=== PATIENT | female | born 1990 | race Caucasian/White ===

== ENCOUNTER 2017-07-20 01:46 | Emergency (ER) | payer SELFPAY ==
[2017-07-20 02:20] VITALS: BP 149/96; PULSE 100; RESP 18; TEMP 98.2; O2SAT 96
[2017-07-20 04:46] VITALS: BP 142/96; PULSE 76; RESP 18; O2SAT 98
--- NOTE | 2017-07-20 05:23 | PD ---
HPI Chief Complaint: Surgical Services Asst Problem/Complaint Time Seen by Provider: 04:54 Travel History International Travel<30 days: No Contact w/Intl Traveler<30days: No Traveled to known affect area: No History of Present Illness HPI 26-year-old female patient with history of PCO S, has missed her menses for the last 3 months and presents to the ER today because she states that she has noticed some whitish discharge as well. She denies any fevers, abdominal pain, or any other symptoms. She states that her menses are irregular and she just wants to get checked out. 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 Modifying Factors: None Associated Signs & Symptoms: Missed menses, discharge Risk Factors: PCO S PFSH Past Medical History Diminished Hearing: No Reproductive: Yes (PCOS) Tetanus Vaccination: Unknown Influenza Vaccination: No ?: Unknown Past Surgical History Surgical History: No Previous Surgery Social History Alcohol Use: No Tobacco Use: No Substance Use: No Allergies-Medications (Allergen,Severity, Reaction): Coded Allergies: No Known Allergies (Verified , 07/20/17) Reported Meds & Prescriptions Reported Meds & Active Scripts Active No Active Prescriptions or Reported Medications Review of Systems Except as stated in HPI: all other systems reviewed are Neg Physical Exam Narrative GENERAL: Well-developed young female patient currently in no acute distress. Awake and oriented 3. SKIN: Focused skin assessment warm/dry. HEAD: Atraumatic. Normocephalic. EYES: Pupils equal and round. No scleral icterus. No injection or drainage. ENT: No nasal bleeding or discharge. Mucous membranes pink and moist. NECK: Trachea midline. No JVD. CARDIOVASCULAR: Regular rate and rhythm. No murmur appreciated. RESPIRATORY: No accessory muscle use. Clear to auscultation. Breath sounds equal bilaterally. GASTROINTESTINAL: Abdomen soft, non-tender, nondistended. Hepatic and splenic margins not palpable. GENITOURINARY: Normal external genitalia without lesions or erythema. Vaginal vault without blood, or significant drainage. Cervical os was closed without drainage. No cervical motion tenderness. I do notice a small ulcerated area at the 12 o'clock position on the cervix. Uterus nontender and nonenlarged. Bilateral adnexa nontender without masses. MUSCULOSKELETAL: No obvious deformities. No clubbing. No cyanosis. No edema. NEUROLOGICAL: Awake and alert. No obvious cranial nerve deficits. Motor grossly within normal limits. Normal speech. PSYCHIATRIC: Appropriate mood and affect; insight and judgment normal. Data Data Last Documented VS Vital Signs Date Time Temp Pulse Resp B/P (MAP) Pulse Ox O2 Delivery O2 Flow Rate FiO2 07/20/17 04:46 76 18 142/96 (111) 98 Room Air 07/20/17 02:20 98.2 Orders Orders Gc And Chlamydia Pcr (07/20/17 04:54) Wet Prep Profile (07/20/17 04:54) Urinalysis - C+S If Indicated (07/20/17 04:54) Labs Laboratory Tests Test 07/20/17 05:00 Urine Color YELLOW Urine Turbidity HAZY Urine pH 6.0 Urine Specific [place] 1.026 Urine Protein TRACE mg/dL Urine Glucose (UA) NEG mg/dL Urine Ketones NEG mg/dL Urine Occult Blood NEG Urine Nitrite NEG Urine Bilirubin NEG Urine Urobilinogen LESS THAN 2.0 MG/DL Urine Leukocyte Esterase SMALL Urine RBC 1 /hpf Urine WBC 4 /hpf Urine Squamous Epithelial Cells 6 /hpf Urine Bacteria OCC /hpf Urine Mucus FEW /lpf Microscopic Urinalysis Comment CULT NOT INDICATED Clue Cells (Wet Prep) PRESENT Vaginal Trichomonas (Wet Prep) NONE SEEN Vaginal Yeast (Wet Prep) NONE SEEN MDM Medical Decision Making Medical Screen Exam Complete: Yes Emergency Medical Condition: Yes Medical Record Reviewed: Yes Interpretation(s) Laboratory Tests Test 07/20/17 05:00 Urine Turbidity HAZY (CLEAR) Urine Leukocyte Esterase SMALL (NEG) Urine Bacteria OCC /hpf (NONE) Urine Mucus FEW /lpf (OCC) Clue Cells (Wet Prep) PRESENT (NONE) Differential Diagnosis Vaginal discharge, missed menses: versus cervicitis versus vaginitis Narrative Course UA shows no signs of significant UTI. Urine test is negative. She does have some clue cells indicative of underlying vaginitis. At this point, my plan would be to treat her with Flagyl. I will have her follow-up with OB/ CARDIAC TECHNOLOGIST regarding this issue. Return for new issues as needed. The plan has been discussed with her and she states understanding. Diagnosis Primary Impression: Missed menses Additional Impression: Bacterial vaginosis Med/Other Pt SpecificInfo: Prescription(s) given Scripts Metronidazole (Flagyl) 500 Mg Tab 500 MG PO TID for Infection for 7 Days, TAB 0 Refills Prov: Maddie Snyder MD 07/20/17 Disposition: 01 DISCHARGE HOME Condition: Stable Maddie Snyder MD Jul 20, 2017 05:22
[2017-07-20 05:30] LABS: BACTERIA, URINE OCC /hpf; BLOOD, URINE NEG (NEG); COMMENT (UR) CULT NOT INDICATED; CULTURE IF INDICATED CULT NOT INDICATED; GLUCOSE,URINE NEG (NEG); KETONE, URINE NEG (NEG); MUCUS URINE FEW /lpf (OCC); NITRITE,URINE NEG (NEG); SQUAMOUS EPITHELIAL CELL URINE 6 /hpf (0-5); URINE COLOR YELLOW (YELLW/STRAW)
[2017-07-20] MEDS ORDERED: METR-1 PO (05:33)
[2017-07-20 07:30] LABS: CHLAMYDIA PCR NOT DETECTED (NOT DETECT); NEISSERIA PCR NOT DETECTED (NOT DETECT)
== END 2017-07-20 06:04 | disposition home or self-care (01) ==
LOC: NED 01:46 → NEPE 06:04
DX: N92.5 Other specified irregular menstruation (principal); N76.0 Acute vaginitis; E28.2 Polycystic ovarian syndrome
CPT/HCPCS: 81001; 87210; 87491; 87591; 99283

== ENCOUNTER 2017-12-04 17:28 | Emergency (ER) | payer MEDICAID ==
[~2017-12-04] VITALS: Ht 168.9 cm; Wt 77.0 kg
[~2017-12-04 17:28] MED LIST: METR-1 PO
[2017-12-04 17:35] VITALS: BP 167/80; PULSE 78; RESP 16; TEMP 97.8; O2SAT 100
--- NOTE | 2017-12-04 18:07 | PD ---
HPI Chief Complaint: Edema Time Seen by Provider: 17:42 Travel History International Travel<30 days: No Contact w/Intl Traveler<30days: No Traveled to known affect area: No History of Present Illness HPI 27-year-old female with history of PCOS, here for evaluation of bilateral flank pain, right greater than left, increased thirst, and lower extremity edema. Symptoms have been going on for 3 days. Flank pain is described as sharp, 8 out of 10, worse with movements. No trauma. No IVDU. No dysuria or hematuria. Patient also reports having noticed some lower extremity edema which is worse as the day progresses. She reports she has had this in the past when she has been , however she is unsure if she is . Her LMP was sometime in October 2017. She denies chest pain or dyspnea. No history of DVT or PE. No fevers or chills. PFSH Past Medical History Diminished Hearing: No Reproductive: Yes (PCOS) Tetanus Vaccination: Unknown Influenza Vaccination: No ?: Unknown LMP: IRREGULAR-PCOS Social History Alcohol Use: No Tobacco Use: Yes Substance Use: No Allergies-Medications (Allergen,Severity, Reaction): Coded Allergies: No Known Allergies (Verified Adverse Reaction, Unknown, 12/04/17) Reported Meds & Prescriptions Reported Meds & Active Scripts Active Flagyl (Metronidazole) 500 Mg Tab 500 Mg PO BID 7 Days Cipro (Ciprofloxacin HCl) 500 Mg Tab 500 Mg PO BID 7 Days Review of Systems Except as stated in HPI: all other systems reviewed are Neg Physical Exam Narrative GENERAL: Well-developed, well-nourished, comfortable, no apparent distress. SKIN: Focused skin assessment warm/dry. No rash. HEAD: Atraumatic. Normocephalic. EYES: Pupils equal and round. No scleral icterus. No injection or drainage. ENT: Mucous membranes pink and moist. NECK: Trachea midline. No JVD. CARDIOVASCULAR: Regular rate and rhythm. No murmur appreciated. RESPIRATORY: No accessory muscle use. Clear to auscultation. Breath sounds equal bilaterally. GASTROINTESTINAL: Abdomen soft, non-tender, nondistended. MUSCULOSKELETAL: No obvious deformities. No clubbing. No cyanosis. No edema. Moderate right CVA tenderness. Mild left CVA tenderness. No midline vertebral step-off or tenderness. NEUROLOGICAL: Awake and alert. No obvious cranial nerve deficits. Motor grossly within normal limits. Normal speech. PSYCHIATRIC: Appropriate mood and affect; insight and judgment normal. Data Data Last Documented VS Vital Signs Date Time Temp Pulse Resp B/P (MAP) Pulse Ox O2 Delivery O2 Flow Rate FiO2 12/04/17 18:15 99 Room Air 12/04/17 17:35 97.8 78 16 167/80 (109) Orders Orders Beta Hcg (Quant/Titer) (12/04/17 18:03) Complete Blood Count With Diff (12/04/17 18:03) Comprehensive Metabolic Panel (12/04/17 18:03) Prothrombin Time / Inr (Pt) (12/04/17 18:03) Act Partial Throm Time (Ptt) (12/04/17 18:03) Urinalysis - C+S If Indicated (12/04/17 18:03) Ct Abd/Pel W Iv Contrast(Rout) (12/04/17 18:03) Iv Access Insert/Monitor (12/04/17 18:03) Ecg Monitoring (12/04/17 18:03) Oximetry (12/04/17 18:03) Sodium Chloride 0.9% Flush (Ns Flush) (12/04/17 18:15) Ed Urine Pregnancytest Poc (12/04/17 18:03) Morphine Inj (Morphine Inj) (12/04/17 18:15) Iohexol 350 Inj (Omnipaque 350 Inj) (12/04/17 18:31) Mandatory Outpatient Referral (12/04/17 19:08) Ciprofloxacin (Cipro) (12/04/17 19:15) Metronidazole (Flagyl) (12/04/17 19:15) Labs Laboratory Tests Test 12/04/17 18:13 White Blood Count 8.6 TH/MM3 Red Blood Count 4.61 MIL/MM3 Hemoglobin 13.5 GM/DL Hematocrit 39.8 % Mean Corpuscular Volume 86.2 FL Mean Corpuscular Hemoglobin 29.2 PG Mean Corpuscular Hemoglobin Concent 33.9 % Red Cell Distribution Width 11.8 % Platelet Count 222 TH/MM3 Mean Platelet Volume 8.4 FL Neutrophils (%) (Auto) 44.1 % Lymphocytes (%) (Auto) 47.4 % Monocytes (%) (Auto) 6.1 % Eosinophils (%) (Auto) 2.1 % Basophils (%) (Auto) 0.3 % Neutrophils # (Auto) 3.8 TH/MM3 Lymphocytes # (Auto) 4.1 TH/MM3 Monocytes # (Auto) 0.5 TH/MM3 Eosinophils # (Auto) 0.2 TH/MM3 Basophils # (Auto) 0.0 TH/MM3 CBC Comment DIFF FINAL Differential Comment Prothrombin Time 10.0 SEC Prothromb Time International Ratio 1.0 RATIO Activated Partial Thromboplast Time 28.5 SEC Urine Color YELLOW Urine Turbidity CLEAR Urine pH 6.0 Urine Specific [place] 1.008 Urine Protein NEG mg/dL Urine Glucose (UA) NEG mg/dL Urine Ketones NEG mg/dL Urine Occult Blood NEG Urine Nitrite NEG Urine Bilirubin NEG Urine Leukocyte Esterase NEG Urine WBC 0-2 /hpf Urine Squamous Epithelial Cells 0-5 /hpf Microscopic Urinalysis Comment CULT NOT INDICATED Blood Urea Nitrogen 12 MG/DL Creatinine 0.70 MG/DL Random Glucose 92 MG/DL Total Protein 7.3 GM/DL Albumin 3.2 GM/DL Calcium Level 8.2 MG/DL Alkaline Phosphatase 81 U/L Aspartate Amino Transf (AST/SGOT) 16 U/L Alanine Aminotransferase (ALT/SGPT) 21 U/L Total Bilirubin 0.3 MG/DL Sodium Level 141 MEQ/L Potassium Level 3.8 MEQ/L Chloride Level 107 MEQ/L Carbon Dioxide Level 28.7 MEQ/L Anion Gap 5 MEQ/L Estimat Glomerular Filtration Rate 99 ML/MIN Human Chorionic Gonadotropin, Quant LESS THAN 1 MIU/ML MDM Medical Decision Making Medical Screen Exam Complete: Yes Emergency Medical Condition: Yes Differential Diagnosis Polynephritis, nephrolithiasis, ureterolithiasis, UTI, , ectopic , diabetes Narrative Course Initial vital signs show heart rate 78, blood pressure 167/80, pulse ox 100% on room air, oral temp of 97.8F. CBC shows a slight lymphocytosis of 47.4%, otherwise unremarkable with a WBC count of 8.6. CMP is unremarkable. Beta hCG is negative. UA is within normal limits, not suggestive of UTI, no hematuria. CT abdomen pelvis: CONCLUSION: 1. Nonspecific borderline enlarged loops of jejunum in the abdomen demonstrating mild circumferential wall thickening with associated subtle mesenteric adenopathy but no significant inflammatory change. Although nonspecific, findings may be seen with enteritis. Inflammatory bowel disease is less likely although in the differential. 2. Normal appendix. 3. No radiopaque renal calculi or obstructive uropathy. Patient was made aware of all findings and provided a copy of her CT abdomen pelvis report. She is resting comfortably. There are no peritoneal signs or tenderness on her abdominal exam. Plan is to start her on a short course of Cipro and Flagyl and have her follow-up as an outpatient with a knife cutter as well as a primary care physician this week. Mandatory gastroenterology referral will be placed as the patient does not have insurance. There is no lower family edema on physical exam, and bilateral calves are supple, nontender. She was advised on when to return to the emergency department. She verbalizes understanding and agreement with plan. Diagnosis Primary Impression: Enteritis Additional Impression: Flank pain Referrals: Sherice Mera MD 3 days Pneumatic Tester [employer] [facility] 3 days Additional Instructions: Follow-up with a primary care physician this week. Follow-up with knife cutter Dr. Mera or a gastric urologist of your choice this week. Return to the emergency department for worsening symptoms or any other concerns. Scripts Metronidazole (Flagyl) 500 Mg Tab 500 MG PO BID for Infection for 7 Days, #14 TAB 0 Refills Prov: Sourav Clark MD 12/04/17 Ciprofloxacin (Cipro) 500 Mg Tab 500 MG PO BID for Infection for 7 Days, #14 TAB 0 Refills Prov: Sourav Clark MD 12/04/17 Disposition: 01 DISCHARGE HOME Condition: Stable Sourav Clark MD Dec 04, 2017 18:07
[2017-12-04 18:15] VITALS: O2SAT 99
[2017-12-04] MEDS ORDERED: SODIUM CHLORIDE 0.9% FLUSH 10 ML FLUSH IV FLUSH PRN (18:15)
[2017-12-04] MEDS ORDERED: MORPHINE SULFATE 2 MG/ML INJ IV PUSH ONE (18:15)
[2017-12-04 18:20] LABS: AUTOMATED NEUTROPHIL # 3.8 TH/MM3 (1.8-7.7); BASOPHIL % 0.3 % (0.0-2.0); BILIRUBIN, URINE NEG (NEG); BLOOD, URINE NEG (NEG); EOSINOPHIL # 0.2 TH/MM3 (0-0.4); EOSINOPHIL % 2.1 % (0.0-4.0); GLUCOSE,URINE NEG (NEG); HEMATOCRIT 39.8 % (35.0-46.0); HEMOGLOBIN 13.5 GM/DL (11.6-15.3); KETONE, URINE NEG (NEG); LYMPH % 47.4 % (9.0-44.0); LYMPHOCYTE # 4.1 TH/MM3 (1.0-4.8); MEAN CELL VOLUME 86.2 FL (80.0-100.0); MEAN CORPUSCULAR HEMOGLOBIN 29.2 PG (27.0-34.0); MEAN CORPUSCULAR HGB CONC 33.9 % (32.0-36.0); MEAN PLATELET VOLUME 8.4 FL (7.0-11.0); MONO % 6.1 % (0.0-8.0); MONOCYTE # 0.5 TH/MM3 (0-0.9); NEUT % 44.1 % (16.0-70.0); NITRITE,URINE NEG (NEG); PLATELET COUNT 222 TH/MM3 (150-450); RED BLOOD COUNT 4.61 MIL/MM3 (4.00-5.30); RED CELL DISTRIBUTION WIDTH 11.8 % (11.6-17.2); URINE LEUKOCYTE ESTERASE NEG (NEG); WHITE BLOOD COUNT 8.6 TH/MM3 (4.0-11.0)
[2017-12-04 18:26] LABS: CHLORIDE 107 MEQ/L (98-107); SODIUM (NA) 141 MEQ/L (136-145)
[2017-12-04 18:29] LABS: URINE COLOR YELLOW (YELLW/STRAW)
[2017-12-04 18:30] LABS: ALBUMIN 3.2 GM/DL (3.4-5.0); BICARBONATE 28.7 MEQ/L (21.0-32.0); CALCIUM 8.2 MG/DL (8.5-10.1); GLUCOSE,RANDOM 92 MG/DL (74-106)
[2017-12-04 18:31] LABS: BLOOD UREA NITROGEN 12 MG/DL (7-18); SQUAMOUS EPITHELIAL CELL URINE 0-5 /hpf (0-5); WBC, URINE 0-2 /hpf (0-5)
[2017-12-04] MEDS ORDERED: IOHEXOL 350 MG/ML 10 ML VIAL (for RAD DIAG) IVCONTRAST ONE (18:31)
[2017-12-04 18:33] LABS: ALT (GPT) 21 U/L (10-53); AST (GOT) 16 U/L (15-37)
[2017-12-04 18:34] LABS: GLOMERULAR FILTRATION RATE 99 ML/MIN (>89)
[2017-12-04 18:35] LABS: TOTAL BILIRUBIN ADULT 0.3 MG/DL (0.2-1.0); TOTAL PROTEIN 7.3 GM/DL (6.4-8.2)
[2017-12-04 18:36] LABS: ALKALINE PHOSPHATASE 81 U/L (45-117)
--- NOTE | 2017-12-04 18:55 | RADRPT ---
EXAM DATE/TIME: 12/04/2017 18:26 [place] COMPARISON: No previous studies available for comparison. INDICATIONS : Bilateral flank pain. IV CONTRAST: 85 cc Omnipaque 350 (iohexol) IV ORAL CONTRAST: No oral contrast ingested. RADIATION DOSE: CTDIvol (mGy) MEDICAL HISTORY : None SURGICAL HISTORY : None. ENCOUNTER: Initial ACUITY: 1 day PAIN SCALE: 8/10 LOCATION: Bilateral flank TECHNIQUE: Volumetric scanning of the abdomen and pelvis was performed. Using automated exposure control and ad justment of the mA and/or kV according to patient size, radiation dose was kept as low as reasonably achievable to obtain optimal diagnostic quality images. DICOM format image data is available electro nically for review and comparison. FINDINGS: LOWER LUNGS: The visualized lower lungs are clear. LIVER: Minimal hypodensities adjacent to falciform ligament consistent with focal fat. Liver is otherwise un remarkable. Gallbladder is unremarkable by CT. SPLEEN: Normal size without lesion. PANCREAS: Within normal limits. KIDNEYS: Normal in size and shape. There is no mass, stone or hydronephrosis. ADRENAL GLANDS: Within normal limits. VASCULAR: There is no aortic aneurysm. BOWEL/MESENTERY: Appendix is visualized and normal in appearance. There are several nonspecific loops of jejunum in th e left abdomen which demonstrate mild circumferential wall thickening and are borderline in size. A f ocal loop measures up to 3.6 cm. There is subtle associated mesenteric adenopathy without significant inflammatory change. More distally, there are fluid-filled nondistended loops of bowel. No significa nt free fluid or drainable fluid collection in the abdomen. No pneumatosis. No free air. ABDOMINAL WALL: Within normal limits. RETROPERITONEUM: There is no lymphadenopathy. BLADDER: No wall thickening or mass. REPRODUCTIVE: Within normal limits. INGUINAL: There is no lymphadenopathy or hernia. MUSCULOSKELETAL: Within normal limits for patient age. CONCLUSION: 1. Nonspecific borderline enlarged loops of jejunum in the abdomen demonstrating mild circumferential wall thickening with associated subtle mesenteric adenopathy but no significant inflammatory change. Although nonspecific, findings may be seen with enteritis. Inflammatory bowel disease is less likely although in the differential. 2. Normal appendix. 3. No radiopaque renal calculi or obstructive uropathy. Phu Saunders MD on December 04, 2017 at 18:48 Board Certified Radiologist. This report was verified electronically.
[2017-12-04 19:00] VITALS: RESP 18
[2017-12-04] MEDS ORDERED: CIPR-9 PO (19:07)
[2017-12-04] MEDS ORDERED: METR-1 PO (19:07)
[2017-12-04] MEDS ORDERED: CIPROFLOXACIN 500 MG TAB PO ONE (19:15)
[2017-12-04] MEDS ORDERED: metroNIDAZOLE 500 MG TAB PO ONE (19:15)
[2017-12-04 19:53] VITALS: BP 156/78
== END 2017-12-04 19:57 | disposition home or self-care (01) ==
LOC: PHED 17:28
DX: K52.9 Noninfective gastroenteritis and colitis, unspecified (principal); D72.820 Lymphocytosis (symptomatic); E28.2 Polycystic ovarian syndrome; Z72.0 Tobacco use
CPT/HCPCS: 74177; 80053; 81001; 84702; 84703; 85025; 85610; 85730; 96374; 99284; J2270; Q9967

== ENCOUNTER 2018-03-05 08:20 | Emergency (ER) | payer MEDICAID ==
[~2018-03-05] VITALS: Ht 167.6 cm; Wt 81.0 kg
[~2018-03-05 08:20] MED LIST changes: +CIPR-9 PO
[2018-03-05 08:24] VITALS: BP 165/99; PULSE 81; RESP 16; TEMP 97.5; O2SAT 98
[2018-03-05] MEDS ORDERED: TRAM50TA PO (08:54)
[2018-03-05] MEDS ORDERED: PENI500T PO (08:54)
--- NOTE | 2018-03-05 08:54 | PD ---
HPI Chief Complaint: Oral / Dental Pain or Problem Time Seen by Provider: 08:43 Travel History International Travel<30 days: No Contact w/Intl Traveler<30days: No Traveled to known affect area: No History of Present Illness HPI Patient is a 27-year-old female comes in complaining of dental pain for the past 3 days. She says the pain is on the entire left side of her lower mouth. She is tried taking ibuprofen and Tylenol without relief. She denies fever chills. She denies any difficulty swallowing or breathing. She says the pain radiates into her neck and her ear. Severity is moderate. PFS Past Medical History Medical History: Denies Significant Hx Diminished Hearing: No Reproductive: Yes (PCOS) Influenza Vaccination: No ?: Not LMP: IRREG Past Surgical History Section: Yes Social History Alcohol Use: No Tobacco Use: Yes (1PPD) Substance Use: No Allergies-Medications (Allergen,Severity, Reaction): Coded Allergies: No Known Allergies (Verified Adverse Reaction, Unknown, 03/05/18) Reported Meds & Prescriptions Reported Meds & Active Scripts Active No Active Prescriptions or Reported Medications Review of Systems General / Constitutional: No: Fever, Chills HENT: Positive: Dental Difficulties Cardiovascular: No: Chest Pain or Discomfort Respiratory: No: Shortness of Breath Gastrointestinal: No: Nausea, Vomiting Musculoskeletal: No: Myalgias, Edema Skin: No Rash, No Change in Pigmentation Neurologic: No: Weakness, Dizziness Physical Exam Narrative GENERAL: Awake and alert, no acute distress. SKIN: Focused skin assessment warm/dry. No wounds or signs of infection. HEAD: Atraumatic. Normocephalic. EYES: Pupils equal and round. No scleral icterus. ENT: Poor dentition throughout the mouth. Several broken teeth, rotted teeth in the left lower jaw. No evidence of abscess. Mucous membranes pink and moist. CARDIOVASCULAR: Regular rate and rhythm. No murmur appreciated. RESPIRATORY: No accessory muscle use. Clear to auscultation. Breath sounds equal bilaterally. MUSCULOSKELETAL: No obvious deformities. No clubbing. No cyanosis. No edema. NEUROLOGICAL: Awake and alert. No obvious cranial nerve deficits. Motor grossly within normal limits. Normal speech. Data Data Last Documented VS Vital Signs Date Time Temp Pulse Resp B/P (MAP) Pulse Ox O2 Delivery O2 Flow Rate FiO2 5/24/18 08:24 97.5 81 16 165/99 (121) 98 Orders Orders Ed Urine Pregnancytest Poc (03/05/18 08:50) Tramadol (Ultram) (03/05/18 09:00) MDM Medical Decision Making Medical Screen Exam Complete: Yes Emergency Medical Condition: Yes Medical Record Reviewed: Yes Differential Diagnosis Dental abscess versus dental infection versus broken teeth versus cavities Narrative Course Patient is a 27-year-old female who comes in complaining of dental pain. Exam shows several broken teeth, very poor dentition. Patient given pain medicine. She will be discharged with prescriptions for penicillin and tramadol. She is advised follow-up with a dentist as soon as possible. Advised return to the ED as needed for any worsening symptoms. Diagnosis Primary Impression: Pain, dental Patient Instructions: General Instructions, Toothache (ED) Additional Instructions: Take all of the antibiotic. Take pain medicine as needed. Follow-up with the dentist. Return to the ED as needed for any worsening symptoms. Scripts Penicillin V Potassium (Penicillin V Potassium) 500 Mg Tab 500 MG PO Q6H for Infection for 7 Days, #28 TAB 0 Refills Prov: Kristan Vela MD 03/05/18 Tramadol (Tramadol) 50 Mg Tab 50 MG PO Q6H Y for PAIN, #10 TAB 0 Refills Prov: Kristan Vela MD 03/05/18 Disposition: 01 DISCHARGE HOME Condition: Stable Kristan Vela MD March 05, 2018 08:54
[2018-03-05] MEDS ORDERED: traMADol HCL 50 MG TAB PO ONE (09:00)
== END 2018-03-05 09:30 | disposition home or self-care (01) ==
LOC: PHEFT 08:20
DX: K08.89 Other specified disorders of teeth and supporting structures (principal); Z72.0 Tobacco use
CPT/HCPCS: 84703; 99283